=== PATIENT | female | born 1950 | race Two or more races ===

== ENCOUNTER 2019-01-08 19:20 | Inpatient (IN) | payer OTHER ==
[~2019-01-08] VITALS: Ht 157.5 cm; Wt 64.0 kg
[2019-01-08] MEDS ORDERED: methylPREDNISolone SOD SUCC 125 MG/2ML VIAL IV ONE (20:00)
[2019-01-08] MEDS ORDERED: ALBUTEROL FS 2.5 MG/3 ML VIAL.NEB CONTNEB ONE (20:00)
[2019-01-08] MEDS ORDERED: IPRATROPIUM NEB FS 0.5 MG/2.5 ML AMPUL.NEB NEB ONE (20:00)
[2019-01-08] MEDS ORDERED: methylPREDNISolone SOD SUCC 125 MG/2ML VIAL ONE (20:00)
[2019-01-08 20:03] LABS: BASOPHILS # (AUTO) 0.1 /CMM (0.0-0.2); BASOPHILS % (AUTO) 0.6 % (0.0-2.0); EOSINOPHILS % (AUTO) 10.1 % (0.0-6.0); HEMATOCRIT 37 % (33-45); HEMOGLOBIN 12.4 g/dL (11.5-14.8); LYMPHOCYTES # (AUTO) 1.8 /CMM (0.8-4.8); LYMPHOCYTES % (AUTO) 17.4 % (20.0-44.0); MEAN CORPUSCULAR HGB CONC 33 g/dl (31.0-36.0); MEAN CORPUSCULAR VOLUME 94 fL (82-100); MONOCYTES # (AUTO) 0.9 /CMM (0.1-1.30); MONOCYTES % (AUTO) 8.4 % (2.0-12.0); NEUTROPHILS # (AUTO) 6.5 /CMM (1.8-8.9); NEUTROPHILS % (AUTO) 63.5 % (43.0-81.0); PLATELET COUNT (AUTO) 332 /CMM (150-450); RED BLOOD CELL COUNT(AUTO) 3.98 MIL/uL (4.0-5.2); WHITE BLOOD COUNT (AUTO) 10.3 K/uL (4.3-11.0)
[2019-01-08] MEDS ORDERED: IPRATROPIUM NEB FS 0.5 MG/2.5 ML AMPUL.NEB ONE (20:06)
[2019-01-08] MEDS ORDERED: ALBUTEROL FS 2.5 MG/3 ML VIAL.NEB ONE (20:06)
[2019-01-08 20:15] LABS: CALCIUM, SERUM 8.7 mg/dL (8.5-10.1); CARBON DIOXIDE 26 mmol/L (21-32); CHLORIDE 103 mmol/L (98-107); GLUCOSE 97 mg/dL (74-106); SODIUM SERUM 138 mmol/L (136-145); UREA NITROGEN, BLOOD 20 mg/dL (7-18)
[2019-01-08 20:27] LABS: ALANINE AMINOTRANSFERASE 32 U/L (12-78); ALBUMIN 3.6 g/dL (3.4-5.0); ALKALINE PHOSPHATASE 82 U/L (46-116); ASPARTATE AMINOTRANSFERASE 20 U/L (15-37); B-TYPE NATRIURETIC PEPTIDE 66 PG/ML (0-125); BILIRUBIN,DIRECT 0.1 mg/dL (0.0-0.2); BILIRUBIN,TOTAL 0.2 mg/dL (0.2-1.0); TOTAL PROTEIN, SERUM 7.3 g/dL (6.4-8.2)
[2019-01-08] MEDS ORDERED: LEVOFLOXACIN 750 MG /D5W 150ML PIGGYBACK IV ONE (20:30)
[2019-01-08] MEDS ORDERED: LEVOFLOXACIN 750 MG /D5W 150ML 150 ML IV ONE (20:50)
[2019-01-08] MEDS ORDERED: PRAV10TA40 PO (21:51)
[2019-01-08] MEDS ORDERED: LOSA25TA27 PO (21:51)
[2019-01-08] MEDS ORDERED: DILT-32 PO (21:51)
[2019-01-08] MEDS ORDERED: PRED1TAB PO (21:51)
[2019-01-08] MEDS ORDERED: LEVO25TA7 PO (21:51)
[2019-01-08] MEDS ORDERED: MONT10TA22 PO (21:51)
[2019-01-08] MEDS ORDERED: ALBUTEROL FS 2.5 MG/3 ML VIAL.NEB NEB PRN (23:00)
[2019-01-08] MEDS ORDERED: ACETAMINOPHEN 650 MG/20.3 ML UDC NG PRN (23:00)
[2019-01-08] MEDS ORDERED: IPRATROPIUM NEB FS 0.5 MG/2.5 ML AMPUL.NEB NEB PRN (23:00)
[2019-01-08] MEDS ORDERED: LOSA100T31 PO (23:36)
[2019-01-08] MEDS ORDERED: DILT240C53 PO (23:36)
[2019-01-08] MEDS ORDERED: PRAV40TA3 PO (23:36)
[2019-01-08] MEDS ORDERED: FERR325T24 PO (23:40)
[2019-01-08] MEDS ORDERED: MULT-1119 PO (23:40)
[2019-01-09] VITALS: BP 146/66
[2019-01-09] MEDS: ALBUTEROL FS 2.5 MG/3 ML VIAL.NEB NEB SCH ×4 (01:12→20:14)
[2019-01-09] MEDS: IPRATROPIUM NEB FS 0.5 MG/2.5 ML AMPUL.NEB NEB SCH ×4 (01:12→20:14)
[2019-01-09] MEDS: ZOLPIDEM TARTRATE 5 MG TABLET PO PRN ×2 (01:58→23:49)
[2019-01-09] MEDS: methylPREDNISolone SOD SUCC 40 MG/ML VIAL IV SCH ×4 (01:58→20:27)
[2019-01-09] MEDS: IV 1/2NS 1000 ML 1,000 ML IV PRN ×2 (03:19→21:06)
[2019-01-09 04:00] VITALS: BP 144/86
[2019-01-09 06:26] LABS: BASOPHILS % (AUTO) 0.2 % (0.0-2.0); EOSINOPHILS % (AUTO) 0.1 % (0.0-6.0); HEMATOCRIT 38 % (33-45); HEMOGLOBIN 12.9 g/dL (11.5-14.8); LYMPHOCYTES # (AUTO) 0.4 /CMM (0.8-4.8); LYMPHOCYTES % (AUTO) 5.9 % (20.0-44.0); MEAN CORPUSCULAR HGB CONC 34 g/dl (31.0-36.0); MEAN CORPUSCULAR VOLUME 94 fL (82-100); MONOCYTES % (AUTO) 0.7 % (2.0-12.0); NEUTROPHILS # (AUTO) 5.6 /CMM (1.8-8.9); NEUTROPHILS % (AUTO) 93.1 % (43.0-81.0); PLATELET COUNT (AUTO) 302 /CMM (150-450); WHITE BLOOD COUNT (AUTO) 6.1 K/uL (4.3-11.0)
[2019-01-09 08:00] VITALS: BP 142/64
[2019-01-09] MEDS: DILTIAZEM HCL CD 240 MG PO SCH (08:09)
[2019-01-09] MEDS: LEVOTHYROXINE SODIUM 25 MCG TABLET PO SCH (08:18)
[2019-01-09] MEDS: MULTIVITAMINS,THERAGRAN 1 UDTAB TABLET PO SCH (08:18)
[2019-01-09] MEDS: LOSARTAN POTASSIUM 50 MG TABLET PO SCH (08:19)
[2019-01-09] MEDS ORDERED: predniSONE 1 MG TABLET PO SCH (09:00)
[2019-01-09] MEDS: SLOW FE 1 TAB PO SCH (11:01)
[2019-01-09 16:00] VITALS: BP 127/74
[2019-01-09] MEDS: MONTELUKAST SODIUM (10MG) 10 MG TABLET PO SCH (18:19)
[2019-01-09 20:00] VITALS: BP 137/72
[2019-01-09] MEDS: LEVOFLOXACIN (250MG) 250 MG TABLET PO SCH (21:05)
[2019-01-09] MEDS ORDERED: ATORVASTATIN 10 MG TABLET PO SCH (22:00)
[2019-01-10] MEDS: ALBUTEROL FS 2.5 MG/3 ML VIAL.NEB NEB SCH ×3 (00:57→13:34)
[2019-01-10] MEDS: IPRATROPIUM NEB FS 0.5 MG/2.5 ML AMPUL.NEB NEB SCH ×3 (00:57→13:34)
[2019-01-10] MEDS: methylPREDNISolone SOD SUCC 40 MG/ML VIAL IV SCH ×3 (02:03→14:05)
[2019-01-10 06:38] LABS: HEMATOCRIT 36 % (33-45); LYMPHOCYTES # (AUTO) 0.4 /CMM (0.8-4.8); LYMPHOCYTES % (AUTO) 2.3 % (20.0-44.0); MEAN CORPUSCULAR HGB CONC 34 g/dl (31.0-36.0); MEAN CORPUSCULAR VOLUME 92 fL (82-100); MONOCYTES # (AUTO) 0.4 /CMM (0.1-1.30); MONOCYTES % (AUTO) 2.2 % (2.0-12.0); NEUTROPHILS # (AUTO) 16.8 /CMM (1.8-8.9); NEUTROPHILS % (AUTO) 95.5 % (43.0-81.0); PLATELET COUNT (AUTO) 330 /CMM (150-450); RED BLOOD CELL COUNT(AUTO) 3.86 MIL/uL (4.0-5.2); WHITE BLOOD COUNT (AUTO) 17.6 K/uL (4.3-11.0)
[2019-01-10 06:55] LABS: CALCIUM, SERUM 8.5 mg/dL (8.5-10.1); CREATININE 0.9 mg/dL (0.6-1.3); POTASSIUM 4.3 mmol/L (3.5-5.1)
[2019-01-10 07:56] VITALS: BP 123/74
[2019-01-10 08:00] VITALS: BP 123/74
[2019-01-10] MEDS: LEVOTHYROXINE SODIUM 25 MCG TABLET PO SCH (08:45)
[2019-01-10] MEDS: DILTIAZEM HCL CD 240 MG PO SCH (08:45)
[2019-01-10] MEDS: MULTIVITAMINS,THERAGRAN 1 UDTAB TABLET PO SCH (08:45)
[2019-01-10] MEDS: LOSARTAN POTASSIUM 50 MG TABLET PO SCH (08:46)
[2019-01-10] MEDS: SLOW FE 1 TAB PO SCH (08:48)
[2019-01-10] MEDS ORDERED: LEVO500T75 PO (08:52)
[2019-01-10] MEDS ORDERED: PRED20TA PO (08:52)
[2019-01-10 16:00] VITALS: BP 139/76
[2019-01-10] MEDS: LEVOFLOXACIN (250MG) 250 MG TABLET PO SCH (17:35)
[2019-01-10] MEDS: MONTELUKAST SODIUM (10MG) 10 MG TABLET PO SCH (17:35)
== END 2019-01-10 17:45 | disposition home or self-care (01) | DRG 192 ==
LOC: ER 19:22 → MED 21:54 → TELE 22:23 → MED 01-09 08:55
PROVIDERS: ADMIT Internal Medicine; ATTEND Internal Medicine
DX: J44.1 Chronic obstructive pulmonary disease with (acute) exacerbation (principal); E03.9 Hypothyroidism, unspecified; E78.5 Hyperlipidemia, unspecified; I10 Essential (primary) hypertension; K21.9 Gastro-esophageal reflux disease without esophagitis; Z87.891 Personal history of nicotine dependence
CPT/HCPCS: 36415; 71045-TC; 80048-TC; 80076-TC; 83605-TC; 83880; 84484-TC; 85025-TC; 87040-TC; 87081-TC; 87400; 94799-TC; G0378; J1956; J2920; J2930; J3490; J7512

== ENCOUNTER 2019-02-03 06:25 | Inpatient (IN) | payer OTHER ==
[~2019-02-03] VITALS: Ht 162.6 cm; Wt 63.5 kg
[~2019-02-03 06:25] MED LIST: DILT240C53 PO; FERR325T24 PO; LEVO25TA7 PO; LEVO500T75 PO; LOSA100T31 PO; MONT10TA22 PO; MULT-1119 PO; PRAV40TA3 PO; PRED20TA PO
--- NOTE | 2019-02-03 06:29 | NUR ---
DR. BATES AT BEDSIDE FOR EVAL.
--- NOTE | 2019-02-03 06:29 | NUR ---
PT [id number]. C/O "SHORTNESS OF BREATH, WHEEZING. HX ASTHMA, 91%RA" +SOB. -N/V -DIZZY. AOX4. PT NOTED RESPIRATORY DISTRESS, V/S STABLE, HOOKED TO MONITOR, KEPT RESTED AND COMFORTABLE, WILL CONTINUE TO MONITOR.
[2019-02-03] MEDS ORDERED: methylPREDNISolone SOD SUCC 125 MG/2ML VIAL ONE (06:33)
[2019-02-03] MEDS ORDERED: Magnesium 1GM/D5W 100ML PREMIX 200 ML IV ONE ×2 (06:33)
[2019-02-03] MEDS ORDERED: ALBUTEROL FS 2.5 MG/3 ML VIAL.NEB ONE ×2 (06:45→08:47)
[2019-02-03] MEDS ORDERED: IPRATROPIUM NEB FS 0.5 MG/2.5 ML AMPUL.NEB ONE (06:45)
--- NOTE | 2019-02-03 06:48 | NUR ---
RT AT BEDSIDE FOR BREATHING TREATMENT.
--- NOTE | 2019-02-03 06:50 | NUR ---
ER PHLEB AT BEDSIDE FOR BLOOD DRAW.
--- NOTE | 2019-02-03 06:53 | NUR ---
PATTERN CHAIN MAKER SUPERVISOR AT BEDSIDE FOR XRAY.
[2019-02-03] MEDS ORDERED: methylPREDNISolone SOD SUCC 125 MG/2ML VIAL IV ONE (07:00)
[2019-02-03] MEDS ORDERED: IPRATROPIUM NEB FS 0.5 MG/2.5 ML AMPUL.NEB NEB ONE (07:00)
[2019-02-03] MEDS ORDERED: ALBUTEROL FS 2.5 MG/3 ML VIAL.NEB NEB ONE ×2 (07:00→09:00)
[2019-02-03 07:06] LABS: BASOPHILS % (AUTO) 0.5 % (0.0-2.0); EOSINOPHILS % (AUTO) 13.8 % (0.0-6.0); HEMATOCRIT 36 % (33-45); HEMOGLOBIN 11.8 g/dL (11.5-14.8); LYMPHOCYTES # (AUTO) 1.8 /CMM (0.8-4.8); MEAN CORPUSCULAR HGB CONC 33 g/dl (31.0-36.0); MEAN CORPUSCULAR VOLUME 91 fL (82-100); MONOCYTES # (AUTO) 0.9 /CMM (0.1-1.30); MONOCYTES % (AUTO) 10.2 % (2.0-12.0); NEUTROPHILS # (AUTO) 4.6 /CMM (1.8-8.9); NEUTROPHILS % (AUTO) 54.5 % (43.0-81.0); PLATELET COUNT (AUTO) 394 /CMM (150-450); RED BLOOD CELL COUNT(AUTO) 3.89 MIL/uL (4.0-5.2); WHITE BLOOD COUNT (AUTO) 8.5 K/uL (4.3-11.0)
[2019-02-03 07:11] LABS: CALCIUM, SERUM 9.4 mg/dL (8.5-10.1); CARBON DIOXIDE 25 mmol/L (21-32); CHLORIDE 100 mmol/L (98-107); GLUCOSE 124 mg/dL (74-106); POTASSIUM 4.2 mmol/L (3.5-5.1); SODIUM SERUM 134 mmol/L (136-145); UREA NITROGEN, BLOOD 13 mg/dL (7-18)
[2019-02-03 07:15] VITALS: BP 153/85
--- NOTE | 2019-02-03 07:15 | NUR ---
RT CALLED BY ER NURSE TO PLACED PT ON BIPAP PER MD ORDERS. BREATHING TX GIVEN TOO. PLACED PT ON BIPAP. ALARMS CHECKED AND AUDIBLE. PLUGGED IN RED OUTLET. PT AWAKE AND ALERT. WILL CONTINUE TO MONITOR.
--- NOTE | 2019-02-03 07:15 | NUR ---
RT AT BEDSIDE FOR BIPAP SET UP.
[2019-02-03] MEDS ORDERED: LEVOFLOXACIN 750 MG /D5W 150ML 150 ML IV ONE (07:22)
[2019-02-03 07:25] LABS: ALANINE AMINOTRANSFERASE 22 U/L (12-78); ALBUMIN 3.3 g/dL (3.4-5.0); ALKALINE PHOSPHATASE 79 U/L (46-116); ASPARTATE AMINOTRANSFERASE 19 U/L (15-37); B-TYPE NATRIURETIC PEPTIDE 105 PG/ML (0-125); BILIRUBIN,DIRECT 0.1 mg/dL (0.0-0.2); BILIRUBIN,TOTAL 0.5 mg/dL (0.2-1.0); TOTAL PROTEIN, SERUM 6.8 g/dL (6.4-8.2)
[2019-02-03] MEDS ORDERED: IV NS 0.9% 1,000 ML BAG IV ONE (07:30)
[2019-02-03] MEDS ORDERED: LEVOFLOXACIN 750 MG /D5W 150ML PIGGYBACK IV ONE (07:30)
--- NOTE | 2019-02-03 07:35 | NUR ---
RT CALLED BY ER NURSE TO TAKE PT OFF BIPAP PER MD ORDER. PT COMPLAINS THAT THE MACHINE IS TOO MUCH AND NOT TOLERATING IT. PT ASSESSED, WOB HAS DECREASED. SP02 AND HR WITHIN NORMAL LIMITS. WILL CONTINUE TO MONITOR.
--- NOTE | 2019-02-03 07:35 | NUR ---
REPORT GIVEN TO MARCEL PETERSON FOR JCARLOS.
--- NOTE | 2019-02-03 07:40 | NUR ---
received report from Ehsan RN for kristel. Patient is resting and in no apparent distress noted.
[2019-02-03] MEDS ORDERED: IPRA12.9 IH (07:56)
[2019-02-03] MEDS ORDERED: PRED1TAB PO (07:56)
[2019-02-03] MEDS ORDERED: TERBUTALINE SULFATE 1 MG/ML VIAL ONE (08:18)
[2019-02-03] MEDS ORDERED: TERBUTALINE SULFATE 1 MG/ML VIAL SQ ONE (08:30)
--- NOTE | 2019-02-03 08:40 | NUR ---
RT at bedside for ABG.
[2019-02-03 08:54] LABS: ABG BASE EXCESS -1.9 mmol/L; ABG OXYGEN SATURATION 97.6 % (92.0-98.5); ABG PCO2 45.2 mmHg (35.0-45.0); ABG PH 7.342 (7.350-7.450); ABG PO2 120.7 mmHg (75.0-100.0); AaDO2 83.6 mmHg; MetHb 0.8 % (0.0-1.5); O2Hb 96.8 % (94.0-97.0); SITE, ABG Left Radial; VENT MODE, BG Nasal Cannula
--- NOTE | 2019-02-03 12:17 | NUR ---
CALLED NURSING SUP. FOR [facility] BED
--- NOTE | 2019-02-03 12:30 | NUR ---
KARLIE [id number] IS THE NURSE
--- NOTE | 2019-02-03 12:42 | NUR ---
called [facility] and report given to Louisa ROD for JCARLOS.
--- NOTE | 2019-02-03 14:10 | NUR ---
transferred patient via acls protocol in no apparent distress noted.
--- NOTE | 2019-02-03 14:15 | NUR ---
KARLIE ELECTRONIC FUNDS TRANSFER COORDINATOR NOTES RECEIVED PT FROM ER O ROOM 119-1.ALERT/ORIENTED X4.ON TELE HR IS [address],ON NC 2L O2 VIA CONTINUOUSLY.NOTED WITH LABORED SOB .VITAL SIGNS CHECKED AND RECORDED.SKIN ASSESSMENT HAS DONE AND PICTURE HAS TAKEN.IV LINE IS O LEFT FA G20,SITE IS CLEAN,DRY AND INTACT.NO INFILTRATION NOTED.SAFETY IS MAINTAINED AT ALL TIMES.BED IS IN LOW POSITION AND LOCKED.CALL LIGHT IS WITHIN REACH.WILL CONTINUE TO MONITOR THE PT CLOSELY.
[2019-02-03] MEDS ORDERED: ACETAMINOPHEN 325 MG TABLET PO PRN (15:00)
[2019-02-03] MEDS ORDERED: IPRATROPIUM NEB FS 0.5 MG/2.5 ML AMPUL.NEB NEB PRN (15:00)
[2019-02-03] MEDS ORDERED: ALBUTEROL FS 2.5 MG/0.5 ML VIAL.NEB NEB PRN (15:00)
[2019-02-03] MEDS: IV D5/0.45 NACL 1,000 ML IV PRN (15:21)
[2019-02-03] MEDS: LOSARTAN POTASSIUM 50 MG TABLET PO SCH (15:21)
[2019-02-03 16:00] VITALS: BP 121/81
[2019-02-03] MEDS: methylPREDNISolone SOD SUCC 40 MG/ML VIAL IV SCH ×2 (17:13→23:06)
--- NOTE | 2019-02-03 18:37 | NUR ---
KARLIE RN CLOSING NOTES PT IS LYING ON BED WITH 2L O2 VIA NC.MILD SOB NOTED.NO SIGNIFICANT CHANGES NOTED IN THE SHIFT.WILL ENDORSE NEXT SHIFT RN FOR JCARLOS.
--- NOTE | 2019-02-03 19:30 | NUR ---
RN INITIAL NOTES RECEIVED PT AWAKE ON BED, A/O X4. ON 2L NASAL CANNULA, PT IS TACHYPNEIC, USING ACCESSORY MUSCLES, BUT SATURATING WELL. SINUS TACH ON THE MONITOR, HR 110'S. PT IS CONTINENT, ABLE TO USE THE BEDSIDE COMMODE. LEFT FOREARM 20G WITH D51/2NS @ 75MLS/HR, FLUSHED AND PATENT, NO S/S OF INFILTRATION/INFECTION, DRESSING CDI. BED LOW AND LOCKED, SIDERAILS UP, CALL LIGHT WITHIN REACH. WILL MONITOR
[2019-02-03] MEDS: ALBUTEROL FS 2.5 MG/0.5 ML VIAL.NEB NEB SCH ×2 (19:49→23:40)
[2019-02-03] MEDS: IPRATROPIUM NEB FS 0.5 MG/2.5 ML AMPUL.NEB NEB SCH ×2 (19:49→23:41)
[2019-02-03 20:00] VITALS: BP 158/91
--- NOTE | 2019-02-03 20:41 | NUR ---
RN NOTES NOTIFIED DR GARDNER THAT PATIENT IS HAVING BOUTS OF EXCESSIVE COUGHING. ALSO NOTIFIED HIM THAT PATIENT REQUESTED SLEEPING MEDICINE. MD ORDERED PRN AMBIEN 5MG AND PRN ROBITUSSIN Q4H
[2019-02-03] MEDS: GUAIFENESIN/D-METHORPHAN HB 5 ML UDC PO PRN (21:03)
[2019-02-03] MEDS: ZOLPIDEM TARTRATE 10 MG TABLET PO PRN (23:06)
[2019-02-04] VITALS (7 sets, daily range): BP systolic 122–150; BP diastolic 59–90
[2019-02-04] MEDS: ZOLPIDEM TARTRATE 10 MG TABLET PO PRN ×2 (00:47→21:18)
[2019-02-04] MEDS: IV D5/0.45 NACL 1,000 ML IV PRN ×2 (04:36→18:37)
[2019-02-04] MEDS: GUAIFENESIN/D-METHORPHAN HB 5 ML UDC PO PRN ×3 (04:36→21:18)
[2019-02-04] MEDS: methylPREDNISolone SOD SUCC 40 MG/ML VIAL IV SCH ×3 (05:01→17:01)
--- NOTE | 2019-02-04 06:30 | NUR ---
RN CLOSING NOTES PT REMAINS STABLE OF THE MOMENT. ALL DUE MEDS GIVEN. WILL ENDORSE JCARLOS TO AM RN
--- NOTE | 2019-02-04 07:10 | NUR ---
KARLIE RN OPENING NOTES RECEIVED PT LYING ON BED.ALERT/ORIENTED X4.ON TELE HR IS [address],ON 2L O2 VIA NC CONTINUOUSLY.NO SOB A ND ACUTE DISTRESS NOTED.IV LINE IS O LEFT FA G20,SITE IS CLEAN,DRY AND INTACT.NO INFILTRATION NOTED.SAFETY IS MAINTAINED AT ALL TIMES.BED IS IN LOW POSITION AND LOCKED.CALL LIGHT IS WITHIN REACH.WILL CONTINUE TO MONITOR THE PT CLOSELY.
[2019-02-04] MEDS: IPRATROPIUM NEB FS 0.5 MG/2.5 ML AMPUL.NEB NEB SCH ×3 (07:40→19:27)
[2019-02-04] MEDS: ALBUTEROL FS 2.5 MG/0.5 ML VIAL.NEB NEB SCH ×3 (07:40→19:27)
[2019-02-04] MEDS: LEVOTHYROXINE SODIUM 25 MCG TABLET PO SCH (08:07)
[2019-02-04 08:12] LABS: BASOPHILS % (AUTO) 0.1 % (0.0-2.0); HEMATOCRIT 33 % (33-45); HEMOGLOBIN 11.1 g/dL (11.5-14.8); LYMPHOCYTES # (AUTO) 0.3 /CMM (0.8-4.8); LYMPHOCYTES % (AUTO) 2.4 % (20.0-44.0); MEAN CORPUSCULAR HGB CONC 34 g/dl (31.0-36.0); MEAN CORPUSCULAR VOLUME 91 fL (82-100); MONOCYTES # (AUTO) 0.3 /CMM (0.1-1.30); MONOCYTES % (AUTO) 2.1 % (2.0-12.0); NEUTROPHILS # (AUTO) 12.8 /CMM (1.8-8.9); NEUTROPHILS % (AUTO) 95.4 % (43.0-81.0); PLATELET COUNT (AUTO) 397 /CMM (150-450); WHITE BLOOD COUNT (AUTO) 13.4 K/uL (4.3-11.0)
[2019-02-04 08:25] LABS: ALBUMIN 2.8 g/dL (3.4-5.0); BILIRUBIN,TOTAL 0.3 mg/dL (0.2-1.0); CALCIUM, SERUM 8.7 mg/dL (8.5-10.1); CREATININE 0.9 mg/dL (0.6-1.3); POTASSIUM 4.3 mmol/L (3.5-5.1); TOTAL PROTEIN, SERUM 6.2 g/dL (6.4-8.2)
[2019-02-04] MEDS: ATORVASTATIN 10 MG TABLET PO SCH (08:51)
[2019-02-04] MEDS: MULTIVIT W/MINERALS 1 TAB TABLET PO SCH (08:51)
[2019-02-04] MEDS: MONTELUKAST SODIUM (10MG) 10 MG TABLET PO SCH (08:51)
[2019-02-04] MEDS: LOSARTAN POTASSIUM 50 MG TABLET PO SCH (08:51)
[2019-02-04] MEDS: DILTIAZEM HCL CD 240 MG PO SCH (08:51)
--- NOTE | 2019-02-04 18:00 | NUR ---
OR ASSISTANT NOTES ORDERED TO CONTINUE HOME MEDS ASPIRIN 81MG PO OD AND RANITIDINE HCL PO BID PRN,NEW ORDERS NOTED AND CARRIED OUT.
[2019-02-04] MEDS ORDERED: RANI150T8 PO (18:27)
[2019-02-04] MEDS ORDERED: RANITIDINE 150 MG PO PRN (18:30)
--- NOTE | 2019-02-04 18:53 | NUR ---
ASSOCIATE PROFESSOR OF GEOLOGY CLOSING NOTES PT IS LYING ON BED,NO SIGNIFICANT CHANGES NOTED IN THE SHIFT.ALL DUE MEDS ARE GIVEN.ENDORSE TO NEXT SHIFT RN FOR JCARLOS.
[2019-02-05] VITALS (8 sets, daily range): BP systolic 132–152; BP diastolic 65–88
[2019-02-05] MEDS: methylPREDNISolone SOD SUCC 40 MG/ML VIAL IV SCH ×4 (00:27→18:03)
[2019-02-05] MEDS: ALBUTEROL FS 2.5 MG/0.5 ML VIAL.NEB NEB SCH ×4 (01:03→19:34)
[2019-02-05] MEDS: IPRATROPIUM NEB FS 0.5 MG/2.5 ML AMPUL.NEB NEB SCH ×4 (01:03→19:34)
[2019-02-05] MEDS: GUAIFENESIN/D-METHORPHAN HB 5 ML UDC PO PRN ×3 (01:25→14:29)
[2019-02-05] MEDS: IV D5/0.45 NACL 1,000 ML IV PRN ×2 (06:08→21:27)
--- NOTE | 2019-02-05 08:00 | NUR ---
TELE1/RN AM SHIFT INITIAL NOTES RECEIVED PT AWAKE SITTING IN BED NO ACUTE DISTRESS NOTED, A/O X 4, DENIES ANY SYMPTOMS, RECEIVING BREATHING TREATMENT, LUNG SOUNDS DIMINISHED, SATURATING @ 92%, RESPIRATIONS EVEN AND UNLABORED. ON TELE MONITORING, SR RHYTHM, HR 74, IV SITE PATENT WITH NO S/S OF INFECTION, WITH ON GOING INFUSION OF D51/2NS @ 75CC/HR. PT IS COMFORTABLE, SCHEDULED AM MEDS TO BE GIVEN. CL WITHIN REACHED AND SAFETY MAINTAINED. ON GOING MONITORING.
[2019-02-05] MEDS: LOSARTAN POTASSIUM 50 MG TABLET PO SCH (08:53)
[2019-02-05] MEDS: ASPIRIN 81 MG TAB.CHEW PO SCH (08:54)
[2019-02-05] MEDS: ATORVASTATIN 10 MG TABLET PO SCH (08:54)
[2019-02-05] MEDS: DILTIAZEM HCL CD 240 MG PO SCH (08:54)
[2019-02-05] MEDS: LEVOTHYROXINE SODIUM 25 MCG TABLET PO SCH (08:54)
[2019-02-05] MEDS: MULTIVIT W/MINERALS 1 TAB TABLET PO SCH (08:54)
[2019-02-05] MEDS: MONTELUKAST SODIUM (10MG) 10 MG TABLET PO SCH (08:54)
--- NOTE | 2019-02-05 12:00 | NUR ---
TELE1/RN NOON ROUNDS NO ACUTE CHANGE OF CONDITION. MONITORING CONTINUED.
--- NOTE | 2019-02-05 17:30 | NUR ---
TELE1/RN AFTERNOON ROUNDS NO CHANGE OF CONDITION. PT MOVED TO ROOM 102. MONITORING CONTINUED.
--- NOTE | 2019-02-05 19:37 | NUR ---
TELE1/RN AM SHIFT END NOTES NO ACUTE CHANGE OF CONDITION NOTED DURING THE SHIFT. ALL NEEDS MET. PT ENDORSED TO PM NURSE TO CONTINUE CARE. CL WITHIN REACHED AND SAFETY MAINTAINED.
--- NOTE | 2019-02-05 20:21 | NUR ---
DIALYSIS EQUIPMENT TECHNICIAN INITIAL NOTES RECEIVED PT LYING ON BED.ALERT/ORIENTED X4.ON TELE HR IS [address],ON 2L O2 VIA NC CONTINUOUSLY.NO SOB A ND ACUTE DISTRESS NOTED, CONT' ON SOLUMEDROL IV PUSH.IV LINE IS O LEFT FA G20,SITE IS CLEAN,DRY AND INTACT.NO INFILTRATION NOTED.SAFETY IS MAINTAINED AT ALL TIMES.BED IS IN LOW POSITION AND LOCKED.CALL LIGHT IS WITHIN REACH.WILL CONTINUE TO MONITOR THE PT CLOSELY.
[2019-02-05] MEDS: ZOLPIDEM TARTRATE 10 MG TABLET PO PRN (21:17)
[2019-02-06] VITALS: BP 125/73
[2019-02-06] MEDS: methylPREDNISolone SOD SUCC 40 MG/ML VIAL IV SCH ×3 (00:30→12:36)
[2019-02-06] MEDS: ALBUTEROL FS 2.5 MG/0.5 ML VIAL.NEB NEB SCH ×3 (01:21→13:14)
[2019-02-06] MEDS: IPRATROPIUM NEB FS 0.5 MG/2.5 ML AMPUL.NEB NEB SCH ×3 (01:21→13:14)
[2019-02-06] MEDS ORDERED: LEVO500T75 PO (03:11)
[2019-02-06 04:57] VITALS: BP 141/80
[2019-02-06 06:59] LABS: HEMATOCRIT 33 % (33-45); HEMOGLOBIN 11.3 g/dL (11.5-14.8); LYMPHOCYTES # (AUTO) 0.4 /CMM (0.8-4.8); LYMPHOCYTES % (AUTO) 3.1 % (20.0-44.0); MEAN CORPUSCULAR HGB CONC 34 g/dl (31.0-36.0); MEAN CORPUSCULAR VOLUME 92 fL (82-100); MONOCYTES # (AUTO) 0.3 /CMM (0.1-1.30); MONOCYTES % (AUTO) 2.7 % (2.0-12.0); NEUTROPHILS # (AUTO) 11.8 /CMM (1.8-8.9); NEUTROPHILS % (AUTO) 94.2 % (43.0-81.0); PLATELET COUNT (AUTO) 438 /CMM (150-450); RED BLOOD CELL COUNT(AUTO) 3.63 MIL/uL (4.0-5.2); WHITE BLOOD COUNT (AUTO) 12.6 K/uL (4.3-11.0)
[2019-02-06 07:03] LABS: CALCIUM, SERUM 8.4 mg/dL (8.5-10.1); CREATININE 0.8 mg/dL (0.6-1.3); POTASSIUM 3.7 mmol/L (3.5-5.1)
--- NOTE | 2019-02-06 07:19 | NUR ---
MACHINE HOOP MAKER CLOSING NOTES ENDORSED PT LYING ON BED.ALERT/ORIENTED X4.ON TELE HR IS 80'S WITH ST,ON 2L O2 VIA NC CONTINUOUSLY.NO SOB A ND ACUTE DISTRESS NOTED, CONT' ON SOLUMEDROL IV PUSH.IV LINE IS O LEFT FA G20,SITE IS CLEAN,DRY AND INTACT.NO INFILTRATION NOTED.SAFETY IS MAINTAINED AT ALL TIMES.BED IS IN LOW POSITION AND LOCKED.CALL LIGHT IS WITHIN REACH.WILL CONTINUE TO MONITOR THE PT CLOSELY.
--- NOTE | 2019-02-06 07:20 | NUR ---
RN OPENING NOTES RECEIVED REPORT FROM APERTURE MASK ETCHER RN. PT LYING ON BED.ALERT/ORIENTED X4.ON TELE HR IS 80'S WITH ST,ON 2L O2 VIA NC CONTINUOUSLY.NO SOB A ND ACUTE DISTRESS NOTED, CONT' ON SOLUMEDROL IV PUSH.IV LINE IS O LEFT FA G20,SITE IS CLEAN,DRY AND INTACT.NO INFILTRATION NOTED.SAFETY IS MAINTAINED AT ALL TIMES.BED IS IN LOW POSITION AND LOCKED.CALL LIGHT IS WITHIN REACH.WILL CONTINUE TO MONITOR THE PT CLOSELY.
[2019-02-06 08:00] VITALS: BP 160/89
[2019-02-06] MEDS: ASPIRIN 81 MG TAB.CHEW PO SCH (08:14)
[2019-02-06] MEDS: LOSARTAN POTASSIUM 50 MG TABLET PO SCH (08:14)
[2019-02-06] MEDS: ATORVASTATIN 10 MG TABLET PO SCH (08:14)
[2019-02-06] MEDS: LEVOTHYROXINE SODIUM 25 MCG TABLET PO SCH (08:14)
[2019-02-06] MEDS: MONTELUKAST SODIUM (10MG) 10 MG TABLET PO SCH (08:15)
[2019-02-06] MEDS: MULTIVIT W/MINERALS 1 TAB TABLET PO SCH (08:15)
[2019-02-06] MEDS: DILTIAZEM HCL CD 240 MG PO SCH (08:15)
[2019-02-06 12:00] VITALS: BP 149/77
--- NOTE | 2019-02-06 15:52 | NUR ---
RN D/C NOTES PT GIVEN EXITCARE AND DISCHARGE INSTRUCTIONS WERE GIVEN TO PT WITH TEACH BACK METHOD IMPLEMENTED. IV D/C. PRESCRIPTION GIVEN TO PT. LAST SET OF VITALS TAKEN: T:98.1 HR 88, RR18 SPO2 95% BP 141/80.
== END 2019-02-06 16:19 | disposition home or self-care (01) | DRG 189 ==
LOC: ER 06:27 → TELE-TD 13:50 → TELE1 02-04 14:48
PROVIDERS: ADMIT Internal Medicine; ATTEND Internal Medicine
PROC: 5A09357 Assistance with Respiratory Ventilation, Less than 24 Consecutive Hours, Continuous Positive Airway Pressure (ICD-10-PCS; principal; 2019-02-03)
DX: J96.01 Acute respiratory failure with hypoxia (principal); J44.1 Chronic obstructive pulmonary disease with (acute) exacerbation; J96.02 Acute respiratory failure with hypercapnia; E78.5 Hyperlipidemia, unspecified; E03.9 Hypothyroidism, unspecified; I10 Essential (primary) hypertension; K21.9 Gastro-esophageal reflux disease without esophagitis; Z87.891 Personal history of nicotine dependence
CPT/HCPCS: 36415; 36600; 71045-TC; 80048-TC; 80053-TC; 80076-TC; 82803-TC; 83605-TC; 83880; 84484-TC; 85025-TC; 87040-TC; 87081-TC; 94660; 94799-TC; G0378; J1956; J2920; J2930; J3105; J3475; J3490; J7030

== ENCOUNTER 2021-03-23 16:57 | Emergency (ER) | payer OTHER ==
[~2021-03-23] VITALS: Ht 154.9 cm; Wt 61.2 kg
[~2021-03-23 16:57] MED LIST changes: -FERR325T24 PO; +IPRA12.9 IH; +LEVO500T23 PO; -LEVO500T75 PO; -PRED20TA PO; +RANI150T8 PO
--- NOTE | 2021-03-23 17:08 | NUR ---
DEA [id number] [facility] "lower abdominal pain/constipation xcouple days" BS-127 Patient a/ox4, breathing even and unlabored, no sob noted, needs attended. Kept comfortable.
[2021-03-23] MEDS ORDERED: ONDANSETRON HCL/PF 4 MG/2 ML VIAL ONE (17:20)
[2021-03-23 17:27] LABS: BASOPHILS % (AUTO) 0.3 % (0.0-2.0); EOSINOPHILS % (AUTO) 0.2 % (0.0-6.0); HEMATOCRIT 46 % (33-45); HEMOGLOBIN 15.1 g/dL (11.5-14.8); LYMPHOCYTES # (AUTO) 1.4 /CMM (0.8-4.8); LYMPHOCYTES % (AUTO) 7.3 % (20.0-44.0); MEAN CORPUSCULAR HGB CONC 33 g/dl (31.0-36.0); MEAN CORPUSCULAR VOLUME 91 fL (82-100); MONOCYTES # (AUTO) 1.5 /CMM (0.1-1.30); MONOCYTES % (AUTO) 7.7 % (2.0-12.0); NEUTROPHILS # (AUTO) 16.2 /CMM (1.8-8.9); NEUTROPHILS % (AUTO) 84.5 % (43.0-81.0); PLATELET COUNT (AUTO) 426 /CMM (150-450); RED BLOOD CELL COUNT(AUTO) 5.04 MIL/uL (4.0-5.2); WHITE BLOOD COUNT (AUTO) 19.1 K/uL (4.3-11.0)
--- NOTE | 2021-03-23 17:29 | NUR ---
IV LINE ESTABLISHED, BLOOD DRAWN AND SENT TO LAB.
[2021-03-23 17:30] LABS: BILIRUBIN,URINE MODERATE (NEGATIVE); COLOR,URINE YELLOW (YELLOW); LEUKOCYTE ESTERASE ,URINE Negative (NEGATIVE); NITRITE, URINE Negative (NEGATIVE); PROTEIN,URINE Negative (NEGATIVE); UGLUCOSE Negative (NEGATIVE); UROBILINOGEN,URINE 0.2 EU/dL (0.2)
[2021-03-23] MEDS ORDERED: ONDANSETRON HCL/PF 4 MG/2 ML VIAL IVP ONE (17:30)
[2021-03-23] MEDS ORDERED: IV NS 0.9% 1,000 ML BAG IV ONE ×2 (17:30→22:30)
[2021-03-23 17:40] LABS: ALBUMIN 2.9 g/dL (3.4-5.0); BILIRUBIN,DIRECT 0.1 mg/dL (0.0-0.2); BILIRUBIN,TOTAL 0.6 mg/dL (0.2-1.0); CALCIUM, SERUM 8.8 mg/dL (8.5-10.1); CREATININE 1.1 mg/dL (0.6-1.3); POTASSIUM 3.6 mmol/L (3.5-5.1); TOTAL PROTEIN, SERUM 6.7 g/dL (6.4-8.2); WBC,URINE 0-2 /HPF (0-3)
[2021-03-23 17:41] LABS: BACTERIA,URINE Rare /HPF (None Seen); SQUAMOUS EPITHELIAL CELL,UR 0-2 /HPF (None Seen)
[2021-03-23] MEDS ORDERED: IV NS 0.9% 250 ML IV ONE (17:50)
[2021-03-23] MEDS ORDERED: CT SWABBABLE VALVE TRANS SET 1 EA INFUS.SET MC ONE (17:50)
[2021-03-23] MEDS ORDERED: IOHEXOL-300 100 ML VIAL IV ONE (17:50)
[2021-03-23] MEDS ORDERED: FLUT1BLS6 INH (18:29)
[2021-03-23] MEDS ORDERED: METRONIDAZOLE 500MG/ NS 100ML 100 ML IV ONE ×2 (19:00→19:02)
[2021-03-23] MEDS ORDERED: MORPHINE SULFATE INJ 2 MG/ML DISP.SYRIN IV ONE (19:00)
[2021-03-23] MEDS ORDERED: LEVOFLOXACIN 750 MG /D5W 150ML 150 ML IV ONE ×2 (19:00→19:37)
[2021-03-23] MEDS ORDERED: MORPHINE SULFATE INJ 4 MG/ML DISP.SYRIN ONE (19:02)
--- NOTE | 2021-03-23 19:15 | NUR ---
RECEIVED PT A/OX4 BREATHING EVEN AND UNLABORED; NO SOB NOTED. PT VERBALIZED MILD PAIN 2/10 PER PAIN SCALE. WITH IV ACCESS @ R AC#20, SECURED, PATENT AND FLUSHING WELL. NEEDS ATTENDED. WILL CARRY OUT FOR ANY PENDING MD ORDER.
--- NOTE | 2021-03-23 20:45 | NUR ---
JOAN YOUNG SPEAKING WITH DR. TRAN REGARDING ADMISSION
--- NOTE | 2021-03-23 22:30 | NUR ---
SPOKE WITH MACHINE CLOTH MEASURER STACEY, PENDING TRANSFER INFORMATION TO [facility]. WILL CALL BACK WITH MORE INFORMATION
--- NOTE | 2021-03-23 22:50 | NUR ---
TRANSFER INFORMATION: PT WILL BE TRANSFERRED TO [facility] PER INSURANCE REQUEST ACCEPTING MD: DR. TRAN BED ASSIGNMENT: [id number] NURSE FOR REPORT: NICOLE NUMBER FOR REPORT: [phone] [facility] PROF[facility]AL R
--- NOTE | 2021-03-23 23:50 | NUR ---
REPORT GIVEN TO OF [facility]. PT TO BE TRANSFERRED TO [facility] WITH STABLE V/S.
--- NOTE | 2021-03-23 23:58 | NUR ---
CALLED [facility]-[phone], REPORT GIVEN TO NICOLE FOR [facility] FOR BED#[id number].RN ACKNOWLEDGED.
[2021-03-24 00:10] VITALS: BP 102/65
== END 2021-03-24 01:08 | disposition short-term general hospital (02) ==
LOC: ER 16:58
DX: K52.9 Noninfective gastroenteritis and colitis, unspecified (principal); K56.7 Ileus, unspecified; Z20.822 Contact with and (suspected) exposure to COVID-19; D72.829 Elevated white blood cell count, unspecified; K86.2 Cyst of pancreas; K57.30 Diverticulosis of large intestine without perforation or abscess without bleeding; J43.9 Emphysema, unspecified; I10 Essential (primary) hypertension; K44.9 Diaphragmatic hernia without obstruction or gangrene; Z79.899 Other long term (current) drug therapy; R00.0 Tachycardia, unspecified
CPT/HCPCS: 36415; 74177; 80048; 80076; 81001; 83605 ×2; 83690; 85025; 87040 ×2; 87077; 87081; 87186; 87426; 96361; 96365; 96367; 96375; 99285; C9803; J1956; J2270; J2405; J7030; J7050; Q9967